=== PATIENT | female | born 1940 | race Caucasian/White ===

== ENCOUNTER 2021-03-23 09:03 | Emergency (ER) | payer OTHER ==
[~2021-03-23] VITALS: Ht 160 cm; Wt 84.4 kg
[~2021-03-23 09:03] MED LIST: ASA81 MG; CAPTOPRIL50 MG; METFORMIN HCL500 M1; PLAVIX75 MG
[2021-03-23] MEDS ORDERED: AMOX-CLAV 875-1 EACH PO (14:15)
== END 2021-03-23 14:18 | disposition home or self-care (01) ==
LOC: ER 09:03
DX: R60.0 Localized edema (principal)

== ENCOUNTER 2022-02-27 09:03 | Emergency (ER) | payer OTHER ==
[~2022-02-27] VITALS: Ht 160 cm; Wt 77.1 kg
[~2022-02-27 09:03] MED LIST changes: +AMOX-CLAV 875-1 EACH PO
[2022-02-27] MEDS ORDERED: PLAVIX75 MG (09:27)
[2022-02-27] MEDS ORDERED: HYZAAR 100-251 EACH PO (09:27)
[2022-02-27] MEDS ORDERED: ACID REDUCER20 M1 PO (09:28)
[2022-02-27] MEDS ORDERED: GRALISE600 MG (09:28)
== END 2022-02-27 15:30 | disposition home or self-care (01) ==
LOC: ER 09:03
DX: S40.012A Contusion of left shoulder, initial encounter (principal); W01.0XXA Fall on same level from slipping, tripping and stumbling without subsequent striking against object, initial encounter; Y93.9 Activity, unspecified; Y92.89 Other specified places as the place of occurrence of the external cause; Y99.9 Unspecified external cause status; E11.9 Type 2 diabetes mellitus without complications; Z72.0 Tobacco use; Z79.02 Long term (current) use of antithrombotics/antiplatelets; Z79.84 Long term (current) use of oral hypoglycemic drugs

== ENCOUNTER 2022-03-24 08:22 | Emergency (ER) | payer OTHER | END 2022-03-24 09:42 | disposition home or self-care (01) | LOC: ER 08:22 | DX: S90.222A Contusion of left lesser toe(s) with damage to nail, initial encounter (principal); X58.XXXA Exposure to other specified factors, initial encounter; Y93.89 Activity, other specified; Y92.010 Kitchen of single-family (private) house as the place of occurrence of the external cause; Y99.9 Unspecified external cause status; E11.9 Type 2 diabetes mellitus without complications; Z79.84 Long term (current) use of oral hypoglycemic drugs; I10 Essential (primary) hypertension ==

== ENCOUNTER → 2022-03-25 | Emergency (ER) | payer OTHER ==
[~2022-03-25] VITALS: Ht 160 cm; Wt 77.1 kg
[~2022-03-25] MED LIST changes: +ACID REDUCER20 M1 PO; +GRALISE600 MG; +HYZAAR 100-251 EACH PO; +LEVOFLOXACIN250 MG PO
== END | disposition home or self-care (01) ==
LOC: ER 10:12
DX: S60.112A Contusion of left thumb with damage to nail, initial encounter (principal); W22.09XA Striking against other stationary object, initial encounter; Y93.9 Activity, unspecified; Y92.9 Unspecified place or not applicable; Y99.9 Unspecified external cause status

== ENCOUNTER 2022-05-25 07:18 | Emergency (ER) | payer OTHER ==
[~2022-05-25] VITALS: Ht 157.5 cm; Wt 76.2 kg
== END 2022-05-25 11:42 | disposition home or self-care (01) ==
LOC: ER 07:18
DX: R51.9 Headache, unspecified (principal); I10 Essential (primary) hypertension; E11.9 Type 2 diabetes mellitus without complications; Z79.84 Long term (current) use of oral hypoglycemic drugs

== ENCOUNTER 2022-08-28 11:40 | Emergency (ER) | payer OTHER ==
[~2022-08-28] VITALS: Ht 160 cm; Wt 73.9 kg
[2022-08-28] MEDS ORDERED: AMOX1TAB5 PO (15:55)
== END 2022-08-28 16:11 | disposition home or self-care (01) ==
LOC: ER 11:40
DX: M79.641 Pain in right hand (principal)

== ENCOUNTER 2023-01-28 08:25 | Emergency (ER) | payer OTHER ==
[~2023-01-28] VITALS: Ht 160 cm; Wt 72.6 kg
[~2023-01-28 08:25] MED LIST changes: +AMOX1TAB5 PO
== END 2023-01-28 09:37 | disposition home or self-care (01) ==
LOC: ER 08:25
DX: M25.561 Pain in right knee (principal); R05.9 Cough, unspecified

== ENCOUNTER 2023-04-25 12:06 | Emergency (ER) | payer OTHER ==
[~2023-04-25] VITALS: Ht 172.7 cm; Wt 81.6 kg
[2023-04-25 13:11] LABS: HEMATOCRIT 40.9 % (36.0-45.00); HEMOGLOBIN 13.2 g/dL (12.0-15.00); MEAN CELL VOLUME 93.5 fL (80.00-100.00); MEAN CORPUSCULAR HEMOGLOBIN 30.3 pg (27.00-32.0); MEAN CORPUSCULAR HGB CONC 32.4 g/dl (32.0-36.0); PLATELET COUNT 194 K/uL (150-450); RED BLOOD COUNT 4.38 M/uL (4.00-6.00); RED CELL DISTRIBUTION WIDTH 15.1 % (11.5-14.5)
[2023-04-25 13:30] LABS: CALCIUM 9.5 mg/dL (8.5-10.1); CREATININE SERUM 0.83 mg/dL (0.55-1.02); GFR 65.81; POTASSIUM 4.15 mEq/L (3.5-5.1)
== END 2023-04-25 16:00 | disposition home or self-care (01) ==
LOC: ER 12:06
PROVIDERS: Emergency Medicine
DX: R10.13 Epigastric pain (principal)